=== PATIENT | male | born 1985 | race Caucasian/White ===

== ENCOUNTER 2018-07-05 08:08 | Emergency (ER) | payer SELFPAY ==
[2018-07-05 09:21] LABS: HEMATOCRIT 43.8 % (37.9-51.0); HEMOGLOBIN 14.8 g/dL (13.5-17.0); MEAN CORPUSCULAR HEMOGLOBIN 26.8 pg (27.0-33.4); MEAN CORPUSCULAR HGB CONC 33.9 g/dL (32.0-36.0); MEAN CORPUSCULAR VOLUME 79 fl (80-97); PLATELET COUNT 262 10^3/uL (150-450); RED BLOOD COUNT 5.55 10^6/uL (4.35-5.55); RED CELL DISTRIBUTION WIDTH 14.6 % (11.5-14.0); WHITE BLOOD COUNT 8.5 10^3/uL (4.0-10.5)
[2018-07-05 09:40] LABS: ALANINE AMINOTRANSFERASE 44 U/L (21-72); ALBUMIN 4.7 g/dL (3.5-5.0); ALKALINE PHOSPHATASE 66 U/L (38-126); ANION GAP 10 (5-19); ASPARTATE AMINO TRANSFERASE 22 U/L (17-59); BILIRUBIN,DIRECT 0.3 mg/dL (0.0-0.4); BILIRUBIN,TOTAL 0.3 mg/dL (0.2-1.3); BLOOD UREA NITROGEN 10 mg/dL (7-20); CALCIUM 9.4 mg/dL (8.4-10.2); CARBON DIOXIDE 25 mmol/L (22-30); CHLORIDE 105 mmol/L (98-107); GLUCOSE 149 mg/dL (75-110); LIPASE 67.1 U/L (23-300); POTASSIUM 4.5 mmol/L (3.6-5.0); SODIUM 140.2 mmol/L (137-145); TOTAL PROTEIN 7.3 g/dL (6.3-8.2)
[2018-07-05 09:52] LABS: APPEARANCE,URINE CLEAR; BILIRUBIN,URINE NEGATIVE (NEGATIVE); COLOR,URINE YELLOW; GLUCOSE, URINE >=500 mg/dL (NEGATIVE); KETONES,URINE NEGATIVE (NEGATIVE); LEUKOCYTE ESTERASE,URINE NEGATIVE (NEGATIVE); NITRITE,URINE NEGATIVE (NEGATIVE); PROTEIN,URINE NEGATIVE (NEGATIVE); URINE SPECIFIC GRAVITY 1.018; UROBILINOGEN,URINE NEGATIVE mg/dL (<2.0)
--- NOTE | 2018-07-05 10:24 | ER Document Report ---
ED General - General Chief Complaint: High Blood Sugar Stated Complaint: MEDICATION REFILL Time Seen by Provider: 07/05/18 08:30 Primary Care Provider: STAN CONTI MD [COMMUNITY BASED STAFF] - Follow up as needed TRAVEL OUTSIDE OF THE [place] IN LAST 30 DAYS: No - HPI Patient complains to provider of: Feeling unwell Notes: Patient coming in for feeling unwell and dizzy also requesting medication refill. Patient states he is diabetic and also has run out of his statin medication patient states has not taken his medication approximately 1 month. P atient states most of his medications come from [facility], [facility] recently moved to the area. Patient denies any fevers chills nausea vomiting diarrhea. Patient otherwise seen ambulating without difficulty patient denies any recent travel denies any recent antibiotics denies any recent head trauma. Patient also states a significant psychiatric history for which he is vague for but otherwise states that he has received his medications and is currently taking his psychiatric meds. - Related Data Allergies/Adverse Reactions: No Known Allergies Allergy (Verified 07/05/18 08:08) Past Medical History - Social History Smoking Status: Current Every Day Smoker Frequency of alcohol use: Occasional Drug Abuse: Marijuana Family History: Reviewed & Not Pertinent Patient has suicidal ideation: No Patient has homicidal ideation: No - Past Medical History Cardiac Medical History: Reports: Hx Hypercholesterolemia Endocrine Medical History: Reports: Hx Diabetes Mellitus Type 2 Renal/ Medical History: Denies: Hx Peritoneal Dialysis Psychiatric Medical History: Reports: Hx Depression Review of Systems - Review of Systems Constitutional: No symptoms reported EENT: No symptoms reported Cardiovascular: Dizziness Respiratory: No symptoms reported Gastrointestinal: No symptoms reported Genitourinary: No symptoms reported Male Genitourinary: No symptoms reported Musculoskeletal: No symptoms reported Skin: No symptoms reported Hematologic/Lymphatic: No symptoms reported Neurological/Psychological: No symptoms reported -: Yes All other systems reviewed and negative Physical Exam - Vital signs Vitals: Temp Pulse Resp BP Pulse Ox 98.7 F 90 18 139/88 H 97 07/05/18 08:13 07/05/18 08:13 07/05/18 08:13 07/05/18 08:13 07/05/18 08:13 Interpretation: Normal - General General appearance: Appears well, Alert - HEENT Head: Normocephalic, Atraumatic Eyes: Normal Pupils: PERRL - Respiratory Respiratory status: No respiratory distress Chest status: Nontender Breath sounds: Normal Chest palpation: Normal - Cardiovascular Rhythm: Regular Heart sounds: Normal auscultation Murmur: No - Abdominal Inspection: Normal Distension: No distension Bowel sounds: Normal Tenderness: Nontender Organomegaly: No organomegaly - Back Back: Normal, Nontender - Extremities General upper extremity: Normal inspection, Nontender, Normal color, Normal ROM, Normal temperature General lower extremity: Normal inspection, Nontender, Normal color, Normal ROM, Normal temperature, Normal weight bearing. No: Don's sign - Neurological Neuro grossly intact: Yes Cognition: Normal Orientation: AAOx4 [place] Coma Scale Eye Opening: Spontaneous [place] Coma Scale Verbal: Oriented [place] Coma Scale Motor: Obeys Commands [place] Coma Scale Total: 15 Speech: Normal Motor strength normal: LUE, RUE, LLE, RLE Sensory: Normal - Psychological Associated symptoms: Normal affect, Normal mood - Skin Skin Temperature: Warm Skin Moisture: Dry Skin Color: Normal Course - Re-evaluation Re-evalutation: 07/05/18 14:42 Patient will be restarted back on his metformin and his statin medication. A1c is 6.5 patient was recommended to follow-up with a local [facility] otherwise will be discharged home - Vital Signs Vital signs: Temp Pulse Resp BP Pulse Ox 98.9 F 88 18 132/78 H 99 07/05/18 10:44 07/05/18 10:44 07/05/18 10:44 07/05/18 10:44 07/05/18 10:44 - Laboratory Result Diagrams: 07/05/18 09:00 07/05/18 09:00 Laboratory results interpreted by me: 07/05/18 07/05/18 07/05/18 08:33 08:45 09:00 MCV 79 L MCH 26.8 L RDW 14.6 H Glucose POC Glucose 149 H Hemoglobin A1c % Urine Glucose (UA) >=500 H 07/05/18 07/05/18 09:00 09:00 MCV MCH RDW Glucose 149 H POC Glucose Hemoglobin A1c % 6.5 H Urine Glucose (UA) Discharge - Discharge Clinical Impression: Feeling unwell Diabetes type 2, controlled Qualifiers: Diabetes mellitus oil heaterman insulin use: without oil heaterman use Diabetes mellitus complication status: without complication Qualified Code(s): E11.9 - Type 2 diabetes mellitus without complications Condition: Good Disposition: HOME, SELF-CARE Instructions: Diabetes ([facility]), Glucophage ([facility]) Additional Instructions: Your laboratory studies today do not show any critical pathology. I recommend continue with your metformin that she did have a slightly elevated A1c. Would recommend following up with your primary care physician or the clinic listed. Return to the ER symptoms worsen. Please take medications as prescribed. Prescriptions: Lovastatin [Altoprev] 20 mg PO DAILY #30 tab.er.24h Metformin HCl [Glucophage 500 mg Tablet] 500 mg PO BID #60 tablet Forms: Return to Work Referrals: STAN CONTI MD [COMMUNITY BASED STAFF] - Follow up as needed
[2018-07-05] MEDS ORDERED: ACETAMINOPHEN 325 MG TABLET PO ONE (10:29)
[2018-07-05 10:44] VITALS: BP 132/78
== END 2018-07-05 10:44 | disposition home or self-care (01) ==
LOC: ER 08:08
DX: E11.9 Type 2 diabetes mellitus without complications (principal); E78.00 Pure hypercholesterolemia, unspecified; T46.6X6A Underdosing of antihyperlipidemic and antiarteriosclerotic drugs, initial encounter; Z91.128 Patient's intentional underdosing of medication regimen for other reason; Z91.14 Patient's other noncompliance with medication regimen; Z76.0 Encounter for issue of repeat prescription; R42 Dizziness and giddiness; F17.200 Nicotine dependence, unspecified, uncomplicated; F12.10 Cannabis abuse, uncomplicated; Z79.899 Other long term (current) drug therapy
CPT/HCPCS: 36415; 80053; 81001; 82962; 83036; 83690; 85027; 99282